=== PATIENT | male | born 1980 | race Caucasian/White ===

== ENCOUNTER 2020-08-11 18:05 | Emergency (ER) | payer OTHER, SELFPAY ==
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
[2020-08-11 18:11] VITALS: BP 116/76; PULSE 87; RESP 16; TEMP 36.2; O2SAT 99
[2020-08-11 18:18] VITALS: O2SAT 100
[2020-08-11 18:41] VITALS: O2SAT 100
--- NOTE | 2020-08-11 19:38 | PC.NURSE ---
pt ambulated to bathroom w/ no difficulties.
[2020-08-11] MEDS: KETOROLAC 30 MG/ML VIAL (*BKC) IM (19:49)
[2020-08-11 20:39] VITALS: BP 112/81; PULSE 81; RESP 16; O2SAT 100
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
== END 2020-08-11 20:41 | disposition home or self-care (01) ==
PROVIDERS: Emergency Provider Emergency Medicine
DX: S46.911A Strain of unspecified muscle, fascia and tendon at shoulder and upper arm level, right arm, initial encounter (principal); V49.50XA Passenger injured in collision with unspecified motor vehicles in traffic accident, initial encounter
CPT/HCPCS: 73030; 96372; 99283; A4565; J1885